=== PATIENT | female | born 1935 | race Hispanic/Latino ===

== ENCOUNTER 2021-09-07 17:43 | Emergency (ER) | payer SELFPAY ==
[2021-09-07] MEDS ORDERED: AMIODARONE 150 MG in DEXTROSE 5% IN WATER 97 ML IV ONE (17:48)
--- NOTE | 2021-09-07 17:52 | Emergency Department Report ---
HPI - General Time Seen by Provider: 09/07/21 17:45 - HPI HPI: Room 22 The patient is an 85-year-old female present with a chief complaint of cardiac arrest. Per EMS the patient was at home with family when she complained of generally "not feeling well." EMS was called and while they were on route he received a second call from family stating that the patient was not breathing. Respond EMS arrived on scene to find the patient in asystole. ACLS protocols were initiated and the patient was intubated by EMS. Patient was administered 2 rounds of epi and there was return of spontaneous circulation approximately 3 minutes prior to arrival to the ED. Patient has a history of hypertension and TIA ED Past Medical Hx - Past Medical History Hx Hypertension: Yes Hx CVA: No (TIA) - Surgical History Past Surgical History?: No - Family History Family history: no significant - Social History Smoking Status: Unknown if ever smoked ED Review of Systems ROS: Stated complaint: CARDIAC ARREST Other details as noted in HPI Comment: Unobtainable due to pts medical conditions Physical Exam - Physical Exam Physical Exam: GENERAL: The patient is well-developed well-nourished female lying on stretcher being bagged via ET tube. [] HEENT: Normocephalic. Atraumatic. Pupils 3 to 3 mm bilaterally NECK: Supple. Trachea midline CHEST/LUNGS: Breath sounds equal with bagging bilaterally HEART/CARDIOVASCULAR: Regular. There is tachycardia. There is no gallop rub or murmur. ABDOMEN: Abdomen is soft, nontender. Patient has normal bowel sounds. There is no abdominal distention. SKIN: There is no rash. There is no edema. There is no diaphoresis. NEURO: GCS 3 T MUSCULOSKELETAL: There is no evidence of acute injury. ED Course - Reevaluation(s) Reevaluation #1: 09/07/21 19:07 Patient entered cardiac arrest again with an initial rhythm of PEA. This defaulted asystole and then fine V. fib. Patient was defibrillated x1 and ACLS protocols were continued with eventual return of spontaneous circulation 09/07/21 19:30 Patient into cardiac arrest again with initial rhythm of V. tach. Patient was defibrillated and ACLS protocols continued with eventual return of spontaneous circulation Reevaluation #2: 09/07/21 19:40 Patient arrested again but there was no return of spontaneous circulation, further efforts deemed futile. Patient - Central Line Placement Right Femoral Consent Obtained: emergent situation Time Out Performed: Yes Patient Placed on Monitor/Pulse Ox: Yes Prep: mask, gown, gloves Central Line Prep: Chlorhexidine scrub Local Anesthesia Used: Lidocaine 1% Amount of Anesthesia Used (mls): 3 Ultrasound Used for Placement: No Central Line Lumen Inserted: triple Reason for Insertion: High Alert Medication Bloods Obtained for Lab: Yes Central Line Position: good blood return, all ports aspirated, flus, other (Secured with adhesive) Dressing Applied: Tegaderm Patient Tolerated Procedure: well, no complications Complications: none ED Medical Decision Making - Lab Data Result diagrams: 09/07/21 18:31 09/07/21 18:31 Laboratory Tests 09/07/21 09/07/21 09/07/21 17:46 18:31 18:31 WBC 7.6 RBC 3.66 Hgb 11.6 Hct 35.7 MCV 98 H MCH 32 MCHC 32 RDW 14.9 Plt Count 160 Sodium 133 L Potassium 5.8 H Chloride 88.7 L Carbon Dioxide 19 L Anion Gap 31 BUN 30 H Creatinine 1.2 Estimated GFR 43 BUN/Creatinine Ratio 25 Glucose 167 H POC Glucose 146 H Lactic Acid Calcium 9.5 Magnesium Total Bilirubin 0.70 AST 47 H ALT 32 Alkaline Phosphatase 106 Total Creatine Kinase 12 L CK-MB (CK-2) 3.7 CK-MB (CK-2) Rel Index 30.8 H Troponin T < 0.010 NT-Pro-B Natriuret Pep 6331 H Total Protein 6.2 L Albumin 3.6 L Albumin/Globulin Ratio 1.4 TSH Free T4 09/07/21 09/07/21 09/07/21 18:31 18:31 18:31 WBC RBC Hgb Hct MCV MCH MCHC RDW Plt Count Sodium Potassium Chloride Carbon Dioxide Anion Gap BUN Creatinine Estimated GFR BUN/Creatinine Ratio Glucose POC Glucose Lactic Acid 12.80 H* Calcium Magnesium 2.80 H Total Bilirubin AST ALT Alkaline Phosphatase Total Creatine Kinase CK-MB (CK-2) CK-MB (CK-2) Rel Index Troponin T NT-Pro-B Natriuret Pep Total Protein Albumin Albumin/Globulin Ratio TSH 2.510 Free T4 1.74 H - EKG Data -: EKG Interpreted by Me Rate: tachycardia (147 bpm) - EKG Data When compared to previous EKG there are: previous EKG unavailable Interpretation: other (Atrial fibrillation with rapid ventricular response) - Radiology Data Radiology results: report reviewed (Chest x-ray), image reviewed (Chest x-ray) interpreted by me: Chest [id number], ET tube in appropriate position. Questionable atelectasis bilaterally. No pneumothorax [facility] [address] [place] [address] XRay Report Signed Patient: JOSE JACOBO MR#: [id number] : 1935 Acct:[id number] Age/Sex: 85 / F ADM Date: 09/07/21 Loc: ED Attending Dr: Ordering Physician: AMPARO MONTGOMERY MD Date of Service: 09/07/21 Procedure(s): XR chest 1V ap Accession Number(s): [id number] cc: AMPARO MONTGOMERY MD Fluoro Time In Minutes: CHEST 1 VIEW 09/07/2021 5:56 PM INDICATION / CLINICAL INFORMATION: Stat us post cardiac arrest. COMPARISON: None available. FINDINGS: SUPPORT DEVICES: Endotracheal tube terminates approximately 3.0 cm the donna. HEART / MEDIASTINUM: No significant abnormality. LUNGS / PLEURA: No significant pulmonary or pleural abnormality. No pneumothorax. Subsegmental atelectasis in the left lung. ADDITIONAL FINDINGS: Moderate curvature of the thoracolumbar spine. IMPRESSION: 1. Endotracheal tube in expected position. Signer Name: Lev Bettencourt DO Signed: 09/07/2021 6:16 PM Workstation Name: [id number] Transcribed By: NS Dictated By: LEV BETTENCOURT DO Electronically Authenticated By: LEV BETTENCOURT DO Signed Date/Time: 09/07/211815 DD/ 14 TD/TT: - Differential Diagnosis Cardiac arrest, respiratory arrest, dysrhythmia, sepsis Critical care attestation.: If time is entered above; I have spent that time in minutes in the direct care of this critically ill patient, excluding procedure time. ED Disposition Clinical Impression: Cardiac arrest, Atrial fibrillation with rapid ventricular response Disposition: 20 Is pt being admited?: No Does the pt Need Aspirin: No Condition: Poor Time of Disposition: 19:40 (Patient )
[2021-09-07] MEDS ORDERED: AMIODARONE 900 MG in DEXTROSE 5% IN WATER 482 ML IV SCH (18:00)
[2021-09-07] MEDS ORDERED: ATROPINE 0.1% (1 MG/10 ML) CARDIAC SYRINGE ONE ×2 (18:15→18:16)
[2021-09-07] MEDS ORDERED: DOPamine 800 MG/D5W 250ML 800 MG/250 ML BAG IV ONE ×2 (18:16→18:45)
--- NOTE | 2021-09-07 18:20 | XRay Report ---
CHEST 1 VIEW 09/07/2021 5:56 PM INDICATION / CLINICAL INFORMATION: Status post cardiac arrest. COMPARISON: None available. FINDINGS: SUPPORT DEVICES: Endotracheal tube terminates approximately 3.0 cm the donna. HEART / MEDIASTINUM: No significant abnormality. LUNGS / PLEURA: No significant pulmonary or pleural abnormality. No pneumothorax. Subsegmental atelec tasis in the left lung. ADDITIONAL FINDINGS: Moderate curvature of the thoracolumbar spine. IMPRESSION: 1. Endotracheal tube in expected position. Signer Name: Lev Bettencourt DO Signed: 09/07/2021 6:16 PM Workstation Name: [id number]
[2021-09-07] MEDS ORDERED: NORepinephrine/NS 8 MG-250 ML 8 MG/250 ML INFUS..BTL IV ONE (18:37)
[2021-09-07 18:48] LABS: Hematocrit 35.7 % (30.3-42.9); Hemoglobin 11.6 gm/dl (10.1-14.3); Mean Corpuscular HGB Conc 32 % (30-34); Mean Corpuscular Volume 98 fl (79-97); Platelet Count 160 K/mm3 (140-440); Red Blood Count 3.66 M/mm3 (3.65-5.03); Red Cell Distribution Width 14.9 % (13.2-15.2)
[2021-09-07] MEDS ORDERED: NORepinephrine/NS 8 MG-250 ML 8 MG/250 ML INFUS..BTL IV SCH (19:00)
[2021-09-07 19:04] LABS: Creatine Kinase MB 3.7 ng/mL (0.0-4.0)
[2021-09-07 19:05] LABS: Alanine Aminotransferase 32 units/L (7-56); Albumin 3.6 g/dL (3.9-5); BUN/Creatinine Ratio 25; Blood Urea Nitrogen 30 mg/dL (7-17); Calcium 9.5 mg/dL (8.4-10.2); Hemolysis Index 32
[2021-09-07] MEDS ORDERED: VASOPRESSIN 20 UNIT in SODIUM CHLORIDE 0.9% 100 ML IV SCH (19:07)
[2021-09-07 19:09] VITALS: BP 159/55
[2021-09-07 19:19] LABS: Free T4 (Free Thyroxine) 1.74 ng/dL (0.76-1.46)
[2021-09-07] MEDS ORDERED: CALCIUM CHLORIDE 1,000 MG in SODIUM CHLORIDE 0.9% 100 ML IV ONE (19:31)
[2021-09-07 21:20] LABS: Anisocytosis 1+; Basophils % (Manual) 0 % (0.0-1.8); Eosinophils % (Manual) 0 % (0.0-4.3); Macrocytosis 1+; Platelet Estimate Consistent w Auto; Total Cells Counted 100
== END 2021-09-07 19:39 ==
LOC: ED 17:43
DX: I46.9 Cardiac arrest, cause unspecified (principal); I48.20 Chronic atrial fibrillation, unspecified; I10 Essential (primary) hypertension
CPT/HCPCS: 36415; 36556; 71045; 80053; 82140; 82550; 82553; 82962; 83735; 83880; 84439; 84443; 84484; 85007; 85025; 87040; 92950; 99285; J0461; J1265; J2354; 96365; 96368; J3490